=== PATIENT | male | born 1950 | race Caucasian/White ===

== ENCOUNTER 2019-06-06 17:15 | Emergency (ER) | payer OTHER ==
[~2019-06-06] VITALS: Ht 182.9 cm; Wt 88.5 kg
--- NOTE | 2019-06-06 17:18 | NUR ---
Gaetano handley in EDM - 06/06/19 at 1748 by [email or web address] MATTHIEU Mills at bedside examining patient.
[2019-06-06 17:27] VITALS: BP_SYST 175
--- NOTE | 2019-06-06 17:27 | NUR ---
Patient to ER bed 01 to gown for evaluation. Side rails up. Report given to ELIDA Shanks
--- NOTE | 2019-06-06 17:30 | NUR ---
Pt brought by self, A&Ox1, pt presents to ER for medical clearance prior transfering to [facility], pt arrived gianna wheelchair , respirations even and unlabored, cap refill <3,
--- NOTE | 2019-06-06 17:35 | NUR ---
MATTHIEU Mills at bedside examining patient.
[2019-06-06 17:39] LABS: BASOPHILS # (AUTO) 0.1 K/uL (0.0-0.2); BASOPHILS % (AUTO) 0.7 % (0.0-2.0); EOSINOPHILS # (AUTO) 0.1 K/uL (0.0-0.4); HEMATOCRIT 42.9 % (36-54); HEMOGLOBIN 14.6 g/dL (14.0-18.0); LYMPHOCYTES # (AUTO) 1.5 K/uL (1.0-5.5); LYMPHOCYTES % (AUTO) 17.6 % (20.5-51.5); MEAN CORPUSCULAR HEMOGLOBIN 32 pg (27-31); MEAN CORPUSCULAR HGB CONC 34 % (32-36); MEAN CORPUSCULAR VOLUME 93 fL (79.0-98.0); MONOCYTES # (AUTO) 0.7 K/uL (0.0-1.0); MONOCYTES % (AUTO) 8.5 % (1.7-9.3); NEUTROPHILS # (AUTO) 6.1 K/uL (1.8-7.7); NEUTROPHILS % (AUTO) 72.2 % (40.0-70.0); PLATELET COUNT (AUTO) 216 K/uL (130-430); RED BLOOD CELL COUNT(AUTO) 4.63 MIL/uL (4.2-6.2); RED CELL DISTRIBUTION WIDTH 13.7 % (9.0-15.0); WHITE BLOOD COUNT (AUTO) 8.5 K/uL (4.8-10.8)
[2019-06-06 18:24] LABS: ANION GAP 5 (5-15); CALCIUM 9.3 mg/dL (8.4-11.0); CHLORIDE 101 mmol/L (98-107); CREATININE 1.07 mg/dL (0.55-1.30); GLUCOSE 317 mg/dL (70-99); POTASSIUM 4.7 mmol/L (3.5-5.1); SODIUM SERUM 136 mmol/L (136-145); UREA NITROGEN, BLOOD 23 mg/dL (8-21)
[2019-06-06 18:29] LABS: ALANINE AMINOTRANSFERASE 31 U/L (12-78); ALBUMIN 3.5 g/dL (3.4-4.8); ASPARTATE AMINOTRANSFERASE 16 U/L (10-37); TOTAL BILIRUBIN 1.1 mg/dL (0.0-1.0)
[2019-06-06 18:32] LABS: BILIRUBIN,URINE NEGATIVE (NEGATIVE); CLARITY/URINE CLEAR (CLEAR); COLOR,URINE YELLOW (YELLOW); GLUCOSE,URINE 3+ (NEGATIVE); KETONES,URINE NEGATIVE (NEGATIVE); LEUKOCYTE ESTERASE ,URINE NEGATIVE (NEGATIVE); NITRITE, URINE NEGATIVE (NEGATIVE); PROTEIN URINE NEGATIVE (NEGATIVE); UROBILINOGEN,URINE 0.2 (0.2-1.0)
[2019-06-06 18:33] LABS: ALCOHOL, BLOOD < 3 mg/dL (<10); GFR AFRICAN AMERICAN 88 mL/min (>90)
[2019-06-06 18:34] LABS: ACETAMINOPHEN < 1 ug/mL (1-30)
[2019-06-06 18:37] LABS: BLOOD, URINE TRACE (NEGATIVE)
[2019-06-06] MEDS ORDERED: INSULIN REGULAR, HUMAN 10 UNITS/0.1 ML INJ SUBCUT ONE (18:45)
--- NOTE | 2019-06-06 18:50 | NUR ---
Food given to patient as ordered, well tolerated.
[2019-06-06 18:52] LABS: CHOLESTEROL 158 mg/dL (<200); HDL CHOLESTEROL 45 mg/dL (>45); LDL CHOLESTEROL 96 mg/dL (<100); TRIGLYCERIDES 94 mg/dL (30-150)
[2019-06-06 18:58] LABS: BARBITURATE, URINE NEGATIVE (NEG <=200); BENZODIAZEPINE, URINE NEGATIVE (NEG <=150); CANNABINOID, URINE NEGATIVE (NEG <=50); COCAINE, URINE NEGATIVE (NEG <=150); METHAMPHETAMINES SCREEN,URINE NEGATIVE (NEG <=500); OPIATE, URINE NEGATIVE (NEG <=100); PHENCYCLIDINE SCREEN,URINE NEGATIVE (NEG <=25); UR TRICYCLIC ANTIDEPRESSANTS NEGATIVE (NEG <=300); URINE AMPHETAMINE NEGATIVE (NEG <=500); URINE METHADONE NEGATIVE (NEG <=200); URINE OXYCODONE SCREEN NEGATIVE (NEG <=100); URINE PROPOXYPHENE SCREEN NEGATIVE (NEG <=300)
[2019-06-06 19:00] LABS: BACTERIA,URINE FEW /HPF (None Seen); MUCUS,URINE None Seen /LPF (None Seen); WBC,URINE 0-3 /HPF (0-3)
--- NOTE | 2019-06-06 19:01 | NUR ---
Insulind administered as ordered, well tolerated, per Dr Mills order a food tray to patient
--- NOTE | 2019-06-06 19:03 | NUR ---
Pt continues seamusing, Hx of sych
--- NOTE | 2019-06-06 20:45 | NUR ---
Patient to be transferred to [facility]. Is being transferred due to higher level of care. Receiving facility has accepting physician and available space. ER physician has signed transfer form. Patient or responsible republican has agreed to transfer and signed form. Patient belongings inventoried and will be sent with patient. Copy of nursing notes, lab reports, EKG, Physicians Orders and X-rays to be sent with patient. Report called to Kasia at receiving facility. ambulance service has been called for transfer.
[2019-06-06 20:47] VITALS: BP_SYST 175
== END 2019-06-06 20:46 ==
LOC: SED 17:15
DX: E11.65 Type 2 diabetes mellitus with hyperglycemia (principal); Z02.89 Encounter for other administrative examinations; F03.90 Unspecified dementia, unspecified severity, without behavioral disturbance, psychotic disturbance, mood disturbance, and anxiety; F23 Brief psychotic disorder; G45.9 Transient cerebral ischemic attack, unspecified; I12.9 Hypertensive chronic kidney disease with stage 1 through stage 4 chronic kidney disease, or unspecified chronic kidney disease; E11.22 Type 2 diabetes mellitus with diabetic chronic kidney disease; N18.9 Chronic kidney disease, unspecified
CPT/HCPCS: 36415; 80053; 80061; 80307; 81000; 82962; 83036; 85025; 87081; 96372; 99285; G0480; G0481; G0482; J1815

== ENCOUNTER 2019-06-07 14:50 | Outpatient (CLI) | payer OTHER ==
[2019-06-07 17:39] LABS: CHOLESTEROL 176 mg/dL (<200); HDL CHOLESTEROL 51 mg/dL (>45); LDL CHOLESTEROL 116 mg/dL (<100); TRIGLYCERIDES 84 mg/dL (30-150)
== END 2019-06-07 18:50 | disposition home or self-care (01) ==
LOC: SLB 14:50
DX: E11.9 Type 2 diabetes mellitus without complications (principal); Z79.4 Long term (current) use of insulin; N28.9 Disorder of kidney and ureter, unspecified; E80.7 Disorder of bilirubin metabolism, unspecified; I10 Essential (primary) hypertension; Z86.73 Personal history of transient ischemic attack (TIA), and cerebral infarction without residual deficits; F03.90 Unspecified dementia, unspecified severity, without behavioral disturbance, psychotic disturbance, mood disturbance, and anxiety; F20.9 Schizophrenia, unspecified; E78.00 Pure hypercholesterolemia, unspecified; R26.9 Unspecified abnormalities of gait and mobility; Z87.891 Personal history of nicotine dependence
CPT/HCPCS: 36415; 71045; 80061; 83036

== ENCOUNTER 2019-06-14 19:57 | Inpatient (IN) | payer OTHER ==
[~2019-06-14] VITALS: Ht 182.9 cm; Wt 73.9 kg
[2019-06-14 20:00] VITALS: BP_SYST 123
[2019-06-14] MEDS ORDERED: NS 1000 ML IV.SOLN IV ONE (20:15)
[2019-06-14 20:40] LABS: BASOPHILS % (AUTO) 0.3 % (0.0-2.0); EOSINOPHILS % (AUTO) 0.2 % (0.0-4.0); HEMATOCRIT 43.9 % (36-54); HEMOGLOBIN 14.6 g/dL (14.0-18.0); LYMPHOCYTES # (AUTO) 0.8 K/uL (1.0-5.5); LYMPHOCYTES % (AUTO) 6.9 % (20.5-51.5); MEAN CORPUSCULAR HEMOGLOBIN 31 pg (27-31); MEAN CORPUSCULAR HGB CONC 33 % (32-36); MEAN CORPUSCULAR VOLUME 93 fL (79.0-98.0); MONOCYTES # (AUTO) 1.3 K/uL (0.0-1.0); MONOCYTES % (AUTO) 10.9 % (1.7-9.3); NEUTROPHILS # (AUTO) 9.7 K/uL (1.8-7.7); NEUTROPHILS % (AUTO) 81.7 % (40.0-70.0); PLATELET COUNT (AUTO) 197 K/uL (130-430); RED CELL DISTRIBUTION WIDTH 13.8 % (9.0-15.0); WHITE BLOOD COUNT (AUTO) 11.9 K/uL (4.8-10.8)
[2019-06-14 20:49] LABS: CALCIUM 9.4 mg/dL (8.4-11.0); CREATININE 1.06 mg/dL (0.55-1.30); POTASSIUM 4.5 mmol/L (3.5-5.1)
[2019-06-14 20:55] LABS: ALBUMIN 3.2 g/dL (3.4-4.8)
[2019-06-15 00:01] LABS: BILIRUBIN,URINE NEGATIVE (NEGATIVE); BLOOD, URINE NEGATIVE (NEGATIVE); CLARITY/URINE CLEAR (CLEAR); COLOR,URINE YELLOW (YELLOW); GLUCOSE,URINE TRACE (NEGATIVE); KETONES,URINE TRACE (NEGATIVE); LEUKOCYTE ESTERASE ,URINE NEGATIVE (NEGATIVE); NITRITE, URINE NEGATIVE (NEGATIVE); PH,URINE 5.5 (5.0-8.0); PROTEIN URINE NEGATIVE (NEGATIVE); UROBILINOGEN,URINE 0.2 (0.2-1.0)
[2019-06-15] MEDS ORDERED: LISI-600 PO (00:16)
[2019-06-15] MEDS ORDERED: [UNRECOGNIZED DRUG - OTHER] SQ (00:16)
[2019-06-15] MEDS ORDERED: INSU100V9 SQ (00:16)
[2019-06-15] MEDS ORDERED: MAALOX PO (00:16)
[2019-06-15] MEDS ORDERED: QUET300T2 PO (00:16)
[2019-06-15] MEDS ORDERED: AMLO5TAB4 PO (00:16)
[2019-06-15] MEDS ORDERED: DOCU-144 PO (00:16)
[2019-06-15] MEDS ORDERED: LIP40 PO (00:16)
[2019-06-15] MEDS ORDERED: ASPI-858 PO (00:16)
[2019-06-15] MEDS ORDERED: MEMA10TA PO (00:16)
[2019-06-15] MEDS ORDERED: BISA-79 RC (00:16)
[2019-06-15] MEDS ORDERED: MOM PO (00:16)
[2019-06-15] MEDS ORDERED: ACET325T53 PO (00:16)
[2019-06-15] MEDS ORDERED: ACET325T53 RC (00:16)
[2019-06-15] MEDS ORDERED: DIVA250T PO (00:16)
[2019-06-15] MEDS ORDERED: ZOLP5TAB2 PO (00:16)
[2019-06-15] MEDS ORDERED: LORA-258 PO (00:16)
[2019-06-15] MEDS ORDERED: ACETAMINOPHEN 325 MG TABLET PO PRN (00:45)
[2019-06-15 01:24] VITALS: BP_SYST 133
[2019-06-15] MEDS: 0.45% NS 500 ML IV SCH (02:24)
[2019-06-15] MEDS: D5NS 1,000 ML IV SCH (15:48)
[2019-06-16] MEDS: D5NS 1,000 ML IV SCH ×2 (04:18→16:48)
[2019-06-16] MEDS: ASPIRIN 81 MG TAB.CHEW PO SCH (09:00)
[2019-06-16] MEDS: FAMOTIDINE PF 20 MG/2 ML VIAL IVP SCH (09:00)
[2019-06-16 19:55] VITALS: BP_SYST 138
[2019-06-16] MEDS: LORazepam 2 MG/ML VIAL IM PRN (23:37)
[2019-06-16] MEDS: INSULIN GLARGINE 100 UNITS/ML 10 ML VIAL SUBCUT SCH (23:50)
[2019-06-17] MEDS: D5NS 1,000 ML IV SCH ×3 (05:18→20:48)
[2019-06-17] MEDS: 0.45% NS 500 ML IV SCH (06:38)
[2019-06-17 07:04] LABS: BASOPHILS % (AUTO) 0.4 % (0.0-2.0); EOSINOPHILS # (AUTO) 0.1 K/uL (0.0-0.4); EOSINOPHILS % (AUTO) 0.8 % (0.0-4.0); HEMATOCRIT 43.2 % (36-54); HEMOGLOBIN 14.5 g/dL (14.0-18.0); LYMPHOCYTES # (AUTO) 1.1 K/uL (1.0-5.5); LYMPHOCYTES % (AUTO) 12.9 % (20.5-51.5); MEAN CORPUSCULAR HEMOGLOBIN 31 pg (27-31); MEAN CORPUSCULAR HGB CONC 33 % (32-36); MEAN CORPUSCULAR VOLUME 92 fL (79.0-98.0); MONOCYTES # (AUTO) 1.2 K/uL (0.0-1.0); MONOCYTES % (AUTO) 13.6 % (1.7-9.3); NEUTROPHILS # (AUTO) 6.1 K/uL (1.8-7.7); NEUTROPHILS % (AUTO) 72.3 % (40.0-70.0); PLATELET COUNT (AUTO) 208 K/uL (130-430); RED BLOOD CELL COUNT(AUTO) 4.68 MIL/uL (4.2-6.2); RED CELL DISTRIBUTION WIDTH 13.4 % (9.0-15.0); WHITE BLOOD COUNT (AUTO) 8.5 K/uL (4.8-10.8)
[2019-06-17 08:14] LABS: CALCIUM 9.1 mg/dL (8.4-11.0); CREATININE 0.76 mg/dL (0.55-1.30); POTASSIUM 3.2 mmol/L (3.5-5.1)
[2019-06-17 08:15] LABS: ALBUMIN 3.1 g/dL (3.4-4.8); TOTAL BILIRUBIN 1.5 mg/dL (0.0-1.0)
[2019-06-17] MEDS: FAMOTIDINE PF 20 MG/2 ML VIAL IVP SCH ×2 (09:35→09:37)
[2019-06-17] MEDS: ASPIRIN 81 MG TAB.CHEW PO SCH ×2 (09:35→09:37)
[2019-06-17] MEDS: LORazepam 2 MG/ML VIAL IM PRN (11:47)
[2019-06-17 12:00] VITALS: BP_SYST 136
[2019-06-17 17:32] VITALS: BP_SYST 128
[2019-06-17] MEDS: INSULIN LISPRO SLIDING SCALE 100 UNITS/ML VIAL (humaLOG) SUBCUT PRN (17:35)
[2019-06-17 20:00] VITALS: BP_SYST 148
[2019-06-17] MEDS: LORazepam 2 MG/ML VIAL IVP SCH (20:44)
[2019-06-17] MEDS: INSULIN GLARGINE 100 UNITS/ML 10 ML VIAL SUBCUT SCH (20:59)
[2019-06-18] VITALS: BP_SYST 163
[2019-06-18] MEDS: LORazepam 2 MG/ML VIAL IM PRN (00:27)
[2019-06-18 01:13] VITALS: BP_SYST 163
[2019-06-18 07:47] VITALS: BP_SYST 134
[2019-06-18] MEDS: FAMOTIDINE PF 20 MG/2 ML VIAL IVP SCH (08:47)
[2019-06-18] MEDS: ASPIRIN 81 MG TAB.CHEW PO SCH (08:47)
[2019-06-18] MEDS: LORazepam 2 MG/ML VIAL IVP SCH ×2 (09:00→19:59)
[2019-06-18 09:09] LABS: BASOPHILS # (AUTO) 0.1 K/uL (0.0-0.2); BASOPHILS % (AUTO) 0.8 % (0.0-2.0); EOSINOPHILS # (AUTO) 0.1 K/uL (0.0-0.4); EOSINOPHILS % (AUTO) 0.7 % (0.0-4.0); HEMATOCRIT 40.2 % (36-54); HEMOGLOBIN 13.7 g/dL (14.0-18.0); LYMPHOCYTES # (AUTO) 1.1 K/uL (1.0-5.5); MEAN CORPUSCULAR HEMOGLOBIN 31 pg (27-31); MEAN CORPUSCULAR HGB CONC 34 % (32-36); MEAN CORPUSCULAR VOLUME 91 fL (79.0-98.0); MONOCYTES # (AUTO) 1.1 K/uL (0.0-1.0); MONOCYTES % (AUTO) 12.5 % (1.7-9.3); NEUTROPHILS # (AUTO) 6.8 K/uL (1.8-7.7); PLATELET COUNT (AUTO) 203 K/uL (130-430); RED BLOOD CELL COUNT(AUTO) 4.39 MIL/uL (4.2-6.2); RED CELL DISTRIBUTION WIDTH 13.2 % (9.0-15.0); WHITE BLOOD COUNT (AUTO) 9.2 K/uL (4.8-10.8)
[2019-06-18 09:27] LABS: ALBUMIN 2.7 g/dL (3.4-4.8); CALCIUM 8.3 mg/dL (8.4-11.0); CREATININE 0.7 mg/dL (0.55-1.30); POTASSIUM 3.1 mmol/L (3.5-5.1); TOTAL BILIRUBIN 1.1 mg/dL (0.0-1.0)
[2019-06-18 11:37] VITALS: BP_SYST 111
[2019-06-18 12:00] VITALS: BP_SYST 111
[2019-06-18] MEDS ORDERED: DEXTROSE 50% JECT 50 ML DISP.SYRIN IVP PRN (12:15)
[2019-06-18] MEDS ORDERED: *PPN PER PHARMACY XX SCH (12:15)
[2019-06-18] MEDS: INSULIN LISPRO SLIDING SCALE 100 UNITS/ML VIAL (humaLOG) SUBCUT PRN (12:22)
[2019-06-18] MEDS: KCL 40mEq in D5/0.45NS 1000 mL 1,000 ML IV SCH ×2 (15:02→23:42)
[2019-06-18 16:27] VITALS: BP_SYST 160
[2019-06-18] MEDS ORDERED: POTASSIUM CHLORIDE 20 MEQ in NS 250 ML IV ONE (19:00)
[2019-06-18] MEDS ORDERED: KCL 20 mEq in 100 mL (PREMIX) 100 ML IV ONE (20:00)
[2019-06-18] MEDS: INSULIN GLARGINE 100 UNITS/ML 10 ML VIAL SUBCUT SCH (21:56)
[2019-06-19] MEDS: LORazepam 2 MG/ML VIAL IM PRN (00:40)
[2019-06-19 06:32] LABS: ALBUMIN 3.1 g/dL (3.4-4.8); CREATININE 0.68 mg/dL (0.55-1.30); PHOSPHORUS 2.5 mg/dL (2.7-4.5); POTASSIUM 3.5 mmol/L (3.5-5.1); TOTAL BILIRUBIN 1.4 mg/dL (0.0-1.0)
[2019-06-19 06:42] LABS: BASOPHILS # (AUTO) 0.1 K/uL (0.0-0.2); BASOPHILS % (AUTO) 0.7 % (0.0-2.0); EOSINOPHILS # (AUTO) 0.1 K/uL (0.0-0.4); EOSINOPHILS % (AUTO) 0.5 % (0.0-4.0); HEMATOCRIT 42.9 % (36-54); HEMOGLOBIN 14.5 g/dL (14.0-18.0); LYMPHOCYTES # (AUTO) 1.2 K/uL (1.0-5.5); LYMPHOCYTES % (AUTO) 11.8 % (20.5-51.5); MEAN CORPUSCULAR HEMOGLOBIN 31 pg (27-31); MEAN CORPUSCULAR HGB CONC 34 % (32-36); MEAN CORPUSCULAR VOLUME 92 fL (79.0-98.0); MONOCYTES # (AUTO) 1.4 K/uL (0.0-1.0); MONOCYTES % (AUTO) 14.4 % (1.7-9.3); NEUTROPHILS % (AUTO) 72.6 % (40.0-70.0); PLATELET COUNT (AUTO) 226 K/uL (130-430); RED BLOOD CELL COUNT(AUTO) 4.67 MIL/uL (4.2-6.2); RED CELL DISTRIBUTION WIDTH 13.2 % (9.0-15.0); WHITE BLOOD COUNT (AUTO) 9.7 K/uL (4.8-10.8)
[2019-06-19] MEDS: ASPIRIN 81 MG TAB.CHEW PO SCH (08:52)
[2019-06-19] MEDS: FAMOTIDINE PF 20 MG/2 ML VIAL IVP SCH (08:53)
[2019-06-19] MEDS: LORazepam 2 MG/ML VIAL IVP SCH (08:54)
[2019-06-19] MEDS: INSULIN REGULAR, HUMAN 100 UNITS/ML, 10 ML VIAL (humuLIN R) SUBCUT PRN (11:28)
[2019-06-19 16:17] VITALS: BP_SYST 131
[2019-06-19] MEDS: KCL 40mEq in D5/0.45NS 1000 mL 1,000 ML IV SCH (17:23)
[2019-06-19] MEDS: LORazepam 2 MG/ML VIAL IVP PRN (18:43)
[2019-06-19] MEDS ORDERED: CEFAZOLIN 1 GM IVPB PREMIX 50 ML IV ONE (19:30)
[2019-06-19] MEDS ORDERED: LORazepam 2 MG/ML VIAL IVP PRN (20:45)
[2019-06-19] MEDS ORDERED: TPN PERIPHERAL 0.0001 ML, SODIUM ACETATE 40 MEQ, POTASSIUM CHLORIDE 20 MEQ, K PHOS 9 MM... IV SCH ×9 (21:00)
[2019-06-19] MEDS: FAT EMULSIONS 250 ML IV SCH (21:04)
[2019-06-19 23:03] VITALS: BP_SYST 135
[2019-06-20] MEDS: KCL 40mEq in D5/0.45NS 1000 mL 1,000 ML IV SCH (07:03)
[2019-06-20 07:45] VITALS: BP_SYST 123
[2019-06-20 07:53] LABS: BASOPHILS # (AUTO) 0.1 K/uL (0.0-0.2); BASOPHILS % (AUTO) 0.9 % (0.0-2.0); EOSINOPHILS # (AUTO) 0.1 K/uL (0.0-0.4); EOSINOPHILS % (AUTO) 0.6 % (0.0-4.0); HEMATOCRIT 41.6 % (36-54); HEMOGLOBIN 14.1 g/dL (14.0-18.0); LYMPHOCYTES # (AUTO) 1.1 K/uL (1.0-5.5); LYMPHOCYTES % (AUTO) 11.2 % (20.5-51.5); MEAN CORPUSCULAR HEMOGLOBIN 31 pg (27-31); MEAN CORPUSCULAR HGB CONC 34 % (32-36); MEAN CORPUSCULAR VOLUME 92 fL (79.0-98.0); MONOCYTES # (AUTO) 1.6 K/uL (0.0-1.0); MONOCYTES % (AUTO) 15.2 % (1.7-9.3); NEUTROPHILS # (AUTO) 7.4 K/uL (1.8-7.7); NEUTROPHILS % (AUTO) 72.1 % (40.0-70.0); PLATELET COUNT (AUTO) 208 K/uL (130-430); RED BLOOD CELL COUNT(AUTO) 4.54 MIL/uL (4.2-6.2); RED CELL DISTRIBUTION WIDTH 13.4 % (9.0-15.0); WHITE BLOOD COUNT (AUTO) 10.2 K/uL (4.8-10.8)
[2019-06-20] MEDS: FAMOTIDINE PF 20 MG/2 ML VIAL IVP SCH (08:17)
[2019-06-20] MEDS: ASPIRIN 81 MG TAB.CHEW PO SCH (08:17)
[2019-06-20 08:31] LABS: ALBUMIN 2.6 g/dL (3.4-4.8); CALCIUM 8.4 mg/dL (8.4-11.0); CREATININE 0.69 mg/dL (0.55-1.30); PHOSPHORUS 3.7 mg/dL (2.7-4.5); TOTAL BILIRUBIN 1.6 mg/dL (0.0-1.0)
[2019-06-20] MEDS: INSULIN REGULAR, HUMAN 100 UNITS/ML, 10 ML VIAL (humuLIN R) SUBCUT PRN ×3 (11:10→23:08)
[2019-06-20] MEDS ORDERED: TPN PERIPHERAL 0.0001 ML, SODIUM ACETATE 40 MEQ, POTASSIUM CHLORIDE 20 MEQ, K PHOS 9 MM... IV SCH ×18 (11:45→21:00)
[2019-06-20 12:14] VITALS: BP_SYST 146
[2019-06-20 13:11] LABS: INR 1.2 (0.80-1.20)
[2019-06-20 16:08] VITALS: BP_SYST 146
[2019-06-20 20:30] VITALS: BP_SYST 137
[2019-06-20] MEDS: FAT EMULSIONS 250 ML IV SCH (21:08)
[2019-06-21 02:02] VITALS: BP_SYST 148
[2019-06-21] MEDS: INSULIN REGULAR, HUMAN 100 UNITS/ML, 10 ML VIAL (humuLIN R) SUBCUT PRN ×4 (06:16→23:06)
[2019-06-21] MEDS ORDERED: CEFAZOLIN 1 GM IVPB PREMIX 50 ML IV ONE (06:30)
[2019-06-21 06:33] LABS: INR 1.1 (0.80-1.20); PROTHROMBIN TIME 11.5 SECS (9.5-12.5)
[2019-06-21] MEDS: MIDAZOLAM HCL 5 MG/5 ML VIAL ONE ×3 (07:15→07:27)
[2019-06-21] MEDS: fentaNYL CITRATE/PF 100 MCG/2 ML AMP ONE ×2 (07:15→07:21)
[2019-06-21 09:20] VITALS: BP_SYST 103
[2019-06-21 09:33] VITALS: BP_SYST 134
[2019-06-21] MEDS ORDERED: MEMANTINE HCL 5 MG TABLET GT ONE (11:45)
[2019-06-21] MEDS ORDERED: LORazepam 1 MG TABLET GT PRN (11:45)
[2019-06-21] MEDS ORDERED: QUEtiapine FUMARATE 100 MG TABLET GT ONE (11:45)
[2019-06-21] MEDS: ASPIRIN 81 MG TAB.CHEW PO SCH (11:57)
[2019-06-21] MEDS: FAMOTIDINE PF 20 MG/2 ML VIAL IVP SCH (11:57)
[2019-06-21] MEDS: LORazepam 2 MG/ML VIAL IVP PRN (11:57)
[2019-06-21] MEDS ORDERED: COMMUNICATION ORDER XX ONE (12:00)
[2019-06-21] MEDS ORDERED: ACETAMINOPHEN 325 MG TABLET GT PRN (12:09)
[2019-06-21 13:05] VITALS: BP_SYST 144
[2019-06-21 17:06] VITALS: BP_SYST 125
[2019-06-21 21:00] VITALS: BP_SYST 117
[2019-06-21] MEDS ORDERED: QUEtiapine FUMARATE 100 MG TABLET GT SCH (21:00)
[2019-06-21] MEDS ORDERED: TPN PERIPHERAL 0.0001 ML, SODIUM ACETATE 40 MEQ, POTASSIUM CHLORIDE 20 MEQ, K PHOS 9 MM... IV SCH ×9 (21:00)
[2019-06-21] MEDS ORDERED: MEMANTINE HCL 5 MG TABLET GT SCH (21:00)
[2019-06-21] MEDS: ATORVASTATIN 20 MG TABLET GT SCH (21:03)
[2019-06-21] MEDS: VALPROIC ACID ORAL SYRUP 250 MG/5 ML UDC GT SCH (21:04)
[2019-06-21] MEDS: D5/0.45 NS 1,000 ML IV SCH (23:05)
[2019-06-22 01:25] VITALS: BP_SYST 107
[2019-06-22 06:32] LABS: BASOPHILS # (AUTO) 0.1 K/uL (0.0-0.2); BASOPHILS % (AUTO) 0.6 % (0.0-2.0); EOSINOPHILS % (AUTO) 0.5 % (0.0-4.0); HEMATOCRIT 39.2 % (36-54); HEMOGLOBIN 13.2 g/dL (14.0-18.0); LYMPHOCYTES # (AUTO) 1.1 K/uL (1.0-5.5); LYMPHOCYTES % (AUTO) 11.7 % (20.5-51.5); MEAN CORPUSCULAR HEMOGLOBIN 31 pg (27-31); MEAN CORPUSCULAR HGB CONC 34 % (32-36); MEAN CORPUSCULAR VOLUME 92 fL (79.0-98.0); MONOCYTES # (AUTO) 1.4 K/uL (0.0-1.0); MONOCYTES % (AUTO) 15.2 % (1.7-9.3); NEUTROPHILS # (AUTO) 6.5 K/uL (1.8-7.7); PLATELET COUNT (AUTO) 243 K/uL (130-430); RED BLOOD CELL COUNT(AUTO) 4.26 MIL/uL (4.2-6.2); RED CELL DISTRIBUTION WIDTH 13.6 % (9.0-15.0)
[2019-06-22] MEDS: INSULIN REGULAR, HUMAN 100 UNITS/ML, 10 ML VIAL (humuLIN R) SUBCUT PRN ×3 (06:36→21:05)
[2019-06-22 06:42] LABS: ALBUMIN 2.6 g/dL (3.4-4.8); CREATININE 1.45 mg/dL (0.55-1.30); POTASSIUM 3.8 mmol/L (3.5-5.1); TOTAL BILIRUBIN 1.1 mg/dL (0.0-1.0)
[2019-06-22 08:00] VITALS: BP_SYST 103
[2019-06-22] MEDS: ASPIRIN 81 MG TAB.CHEW GT SCH (09:03)
[2019-06-22] MEDS: QUEtiapine FUMARATE 100 MG TABLET GT SCH ×2 (09:03→20:34)
[2019-06-22] MEDS: MEMANTINE HCL 5 MG TABLET GT SCH (09:03)
[2019-06-22] MEDS: FAMOTIDINE PF 20 MG/2 ML VIAL IVP SCH (09:04)
[2019-06-22] MEDS: VALPROIC ACID ORAL SYRUP 250 MG/5 ML UDC GT SCH ×2 (09:04→20:34)
[2019-06-22 12:19] VITALS: BP_SYST 117
[2019-06-22 16:20] VITALS: BP_SYST 134
[2019-06-22] MEDS: ATORVASTATIN 20 MG TABLET GT SCH (20:34)
[2019-06-22 21:00] VITALS: BP_SYST 94
[2019-06-23] VITALS: BP_SYST 95
[2019-06-23] MEDS: D5/0.45 NS 1,000 ML IV SCH (03:47)
[2019-06-23] MEDS: INSULIN REGULAR, HUMAN 100 UNITS/ML, 10 ML VIAL (humuLIN R) SUBCUT PRN ×2 (06:06→11:28)
[2019-06-23 06:53] LABS: BASOPHILS # (AUTO) 0.1 K/uL (0.0-0.2); BASOPHILS % (AUTO) 1.3 % (0.0-2.0); EOSINOPHILS # (AUTO) 0.1 K/uL (0.0-0.4); EOSINOPHILS % (AUTO) 1.1 % (0.0-4.0); HEMOGLOBIN 13.5 g/dL (14.0-18.0); LYMPHOCYTES # (AUTO) 1.4 K/uL (1.0-5.5); LYMPHOCYTES % (AUTO) 14.3 % (20.5-51.5); MEAN CORPUSCULAR HEMOGLOBIN 31 pg (27-31); MEAN CORPUSCULAR HGB CONC 34 % (32-36); MEAN CORPUSCULAR VOLUME 93 fL (79.0-98.0); MONOCYTES # (AUTO) 1.3 K/uL (0.0-1.0); MONOCYTES % (AUTO) 12.5 % (1.7-9.3); NEUTROPHILS # (AUTO) 7.1 K/uL (1.8-7.7); NEUTROPHILS % (AUTO) 70.8 % (40.0-70.0); PLATELET COUNT (AUTO) 242 K/uL (130-430); RED BLOOD CELL COUNT(AUTO) 4.31 MIL/uL (4.2-6.2); RED CELL DISTRIBUTION WIDTH 13.5 % (9.0-15.0)
[2019-06-23 07:27] LABS: CALCIUM 8.7 mg/dL (8.4-11.0); CREATININE 1.3 mg/dL (0.55-1.30); POTASSIUM 4.4 mmol/L (3.5-5.1)
[2019-06-23 08:00] VITALS: BP_SYST 118
[2019-06-23] MEDS: ASPIRIN 81 MG TAB.CHEW GT SCH (09:10)
[2019-06-23] MEDS: FAMOTIDINE PF 20 MG/2 ML VIAL IVP SCH (09:10)
[2019-06-23] MEDS: MEMANTINE HCL 5 MG TABLET GT SCH (09:10)
[2019-06-23] MEDS: QUEtiapine FUMARATE 100 MG TABLET GT SCH (09:10)
[2019-06-23] MEDS: VALPROIC ACID ORAL SYRUP 250 MG/5 ML UDC GT SCH (09:11)
[2019-06-23 12:20] VITALS: BP_SYST 115
[2019-06-23 15:21] VITALS: BP_SYST 115
[2019-06-24] MEDS ORDERED: FAMOTIDINE 20 MG TABLET PO SCH (09:00)
[2019-06-27 11:05] LABS: CALCIUM 8.9 mg/dL (8.4-11.0); POTASSIUM 3.6 mmol/L (3.5-5.1)
[2019-06-27 11:06] LABS: ALBUMIN 2.9 g/dL (3.4-4.8); CREATININE 0.96 mg/dL (0.55-1.30); HEMATOCRIT 42.7 % (36-54); HEMOGLOBIN 14.1 g/dL (14.0-18.0); RED BLOOD CELL COUNT(AUTO) 4.55 MIL/uL (4.2-6.2); TOTAL BILIRUBIN 1.9 mg/dL (0.0-1.0)
[2019-06-27 11:07] LABS: BASOPHILS % (AUTO) 0.5 % (0.0-2.0); EOSINOPHILS % (AUTO) 0.5 % (0.0-4.0); MEAN CORPUSCULAR HEMOGLOBIN 31 pg (27-31); MEAN CORPUSCULAR HGB CONC 33 % (32-36); MEAN CORPUSCULAR VOLUME 94 fL (79.0-98.0); MONOCYTES % (AUTO) 13.4 % (1.7-9.3); NEUTROPHILS % (AUTO) 73.6 % (40.0-70.0); PLATELET COUNT (AUTO) 185 K/uL (130-430)
== END 2019-06-23 17:15 | DRG 641 ==
LOC: SED 19:57 → STU 06-15 00:35 → SMU 06-19 22:05
PROVIDERS: ADMIT Internal Medicine; ATTEND Internal Medicine
PROC: 0DH63UZ Insertion of Feeding Device into Stomach, Percutaneous Approach (ICD-10-PCS; principal; 2019-06-21 08:15)
PROC: 0DB68ZX Excision of Stomach, Via Natural or Artificial Opening Endoscopic, Diagnostic (ICD-10-PCS; 2019-06-21 08:15)
DX: E86.0 Dehydration (principal); E44.0 Moderate protein-calorie malnutrition; R62.7 Adult failure to thrive; E78.00 Pure hypercholesterolemia, unspecified; F25.9 Schizoaffective disorder, unspecified; E11.22 Type 2 diabetes mellitus with diabetic chronic kidney disease; E78.5 Hyperlipidemia, unspecified; F03.90 Unspecified dementia, unspecified severity, without behavioral disturbance, psychotic disturbance, mood disturbance, and anxiety; F41.9 Anxiety disorder, unspecified; I12.9 Hypertensive chronic kidney disease with stage 1 through stage 4 chronic kidney disease, or unspecified chronic kidney disease; N18.9 Chronic kidney disease, unspecified; R13.10 Dysphagia, unspecified; J44.9 Chronic obstructive pulmonary disease, unspecified; R26.89 Other abnormalities of gait and mobility; K44.9 Diaphragmatic hernia without obstruction or gangrene; K29.70 Gastritis, unspecified, without bleeding; Z86.73 Personal history of transient ischemic attack (TIA), and cerebral infarction without residual deficits; Z68.22 Body mass index [BMI] 22.0-22.9, adult; Z74.01 Bed confinement status
CPT/HCPCS: 36415; 43239; 43246; 70450-TC; 71045; 80048; 80053; 81003; 82140-TC; 82962; 83605; 83735-TC; 83880; 84100-TC; 84478-TC; 84484; 85025; 85610-TC; 87040-TC; 87081; 87086; 88305; 88312; 88313; 92610-GN; 93005; 96360; 97110-GP; 97530-GP; 99285; G0378; J0690; J1815; J2060; J2250; J3010; J3475; J3480; J3490; J7042